=== PATIENT | male | born 1960 | race Caucasian/White ===

== ENCOUNTER → 2022-10-16 | Outpatient (CLI) | payer BC ==
--- NOTE | 2022-10-16 10:24 | CT ---
EXAMINATION TYPE: CT chest w con CT DLP: 755.00 mGycm, Automated exposure control for dose reduction was used. DATE OF EXAM: 10/16/2022 9:44 AM COMPARISON: None CLINICAL INDICATION:Male, 62 years old with history of I71.2 Thoracic Aortic Aneurysm, Thoracic Aorti c Aneurysm TECHNIQUE: Multiple axial images were obtained through the chest. Sagittal and coronal reformats were created for review. Contrast used:100 ml mL of Isovue 370 with IV Contrast (None if empty) Oral contrast used: (None if empty) FINDINGS: LUNGS/ PLEURA: The lung parenchyma appears unremarkable. AIRWAY: Patent and unremarkable. HEART: The mildly enlarged for size. There is coronary artery and aortic valve leaflet consultations. MEDIASTINUM: No gross evidence of adenopathy. VASCULATURE: No aortic aneurysm. The abdominal aorta is ectatic measuring up to 4.8 cm. The pulmonar y artery trunk is prominent at 3.3 cm. Minimal atherosclerosis and arterial vascular. No descending t horacic aorta aneurysm. MUSCULOSKELETAL: No acute osseous abnormalities SOFT TISSUES/LYMPH NODES: Unremarkable. LOWER NECK: No significant findings. UPPER ABDOMEN: No significant findings. IMPRESSION: 1. Ascending thoracic aorta at the upper limits of ectasia measuring up to 4.8 cm. No evidence for a neurysm. 2. Mild cardiomegaly. 3. Moderate aortic valve leaflet calcifications 4. Moderate coronary artery atherosclerosis. 5. No acute thoracic process.
== END | disposition home or self-care (01) ==
LOC: RADCTMAIN 08:13
PROVIDERS: ATTEND Internal Medicine
DX: I35.0 Nonrheumatic aortic (valve) stenosis (principal); I25.10 Atherosclerotic heart disease of native coronary artery without angina pectoris; I51.7 Cardiomegaly
CPT/HCPCS: 71260; Q9967

== ENCOUNTER → 2023-04-06 | Outpatient (CLI) | payer BC ==
--- NOTE | 2023-04-08 08:20 | CT ---
EXAMINATION TYPE: CT angio chest DATE OF EXAM: 04/06/2023 COMPARISON: Prior chest CT October 16, 2022 HISTORY: THORACIC AORTIC ANEURYSM, WITHOUT RUPTURE CT DLP: 1281.7 mGycm. Automated Exposure Control for Dose Reduction was Utilized. CONTRAST: CTA scan of the thorax is performed without and with IV Contrast, patient injected with 100ml mL of I sovue 300, aneurysm protocol. 3D reconstructed images are created on an independent workstation and reviewed. FINDINGS: LUNGS: Some dependent atelectasis otherwise lungs remain clear. There is no pleural effusion or pne umothorax seen. The tracheobronchial tree is patent. MEDIASTINUM: No suspicious hyperdense material on noncontrast images to suggest intramural hematoma. Persistent calcified thickening of the aortic valve. Aorta measures 4.5 cm in diameter in the root co duong image 65 . Aorta measures up to 4.7 cm at the level of the main pulmonary artery axial image 64 . Normal three-vessel takeoff redemonstrated. No aneurysm in the descending thoracic aorta. There are no greater than 1 cm hilar or mediastinal lymph nodes. Heart size upper limits of normal. No pericar dial effusion is seen. Coronary artery calcification is redemonstrated. OTHER: No additional significant abnormality is seen. IMPRESSION: Stable 4.7 cm ascending aortic aneurysm accounting for technical differences.
== END | disposition home or self-care (01) ==
LOC: RADCTMAIN 11:09
PROVIDERS: ATTEND Thoracic Surgery (Cardiothoracic Vascular Surgery)
DX: I71.21 Aneurysm of the ascending aorta, without rupture (principal)
CPT/HCPCS: 71275; Q9967

== ENCOUNTER → 2024-04-16 | Outpatient (CLI) | payer BC ==
[2024-04-16 08:42] LABS: African American GFR (CKD) >90 (>60 ml/min/1.73 sqM); Blood Urea Nitrogen 16 mg/dL (9-20); Non-African American GFR(CKD) >90 (>60 ml/min/1.73 sqM)
--- NOTE | 2024-04-16 09:35 | CT ---
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 TECHNIQUE/CONTRAST: CTA scan of the thorax is performed without and with IV Contrast, patient injected with 100ml mL of I sovue 370, 3D and MIP reconstructed images are created on an independent workstation and reviewed.. . CT DLP: 1212.5 mGycm, Automated exposure control for dose reduction was used. FINDINGS: Lungs/Pleura: No evidence of focal consolidation, pleural effusion or pneumothorax. Airway: Large airways are patent. Heart: Heart is within normal limits for size. Severe aortic valve calcifications. Severe coronary ar marcos dislocations. Vasculature: Ascending thoracic age 46 mm. No evidence for intramural hematoma on noncontrast imaging . No evidence of intimal flap to suggest dissection. No aneurysm identified. Scattered atheroscleroti c disease. There is no evidence for a filling defect within the pulmonary vasculature centrally to gage ggest acute pulmonary embolism. The pulmonary artery is of normal size. Mediastinum: No gross evidence of adenopathy. Musculoskeletal: No acute osseous abnormalities Soft Tissues/lymph nodes: Unremarkable. Lower neck: No significant findings. Upper Abdomen: Diffuse low-attenuation to the liver parenchyma. Pancreatic tail nodule measuring 15 m m. Left hepatic lobe probable cyst in segment 4A. IMPRESSION: 1. No evidence for aortic aneurysm, dissection or occlusion. No evidence for pulmonary embolus in the central pulmonary vasculature. 2. Ascending thoracic aorta ectasia up to 46 mm. 3. Severe aortic valve and coronary artery calcifications. 4. Hepatic steatosis. 5. Pancreatic tail nodule measuring 15 mm, possibly representing a pancreatic tail splenule. Consider multiphase pancreatic mass protocol MRI for confirmation. [facility], , 04/16/2024 9:33 AM
== END | disposition home or self-care (01) ==
LOC: RADCTMAIN 07:52
PROVIDERS: ATTEND Thoracic Surgery (Cardiothoracic Vascular Surgery)
DX: I77.810 Thoracic aortic ectasia (principal); I25.10 Atherosclerotic heart disease of native coronary artery without angina pectoris; K76.0 Fatty (change of) liver, not elsewhere classified; R22.2 Localized swelling, mass and lump, trunk
CPT/HCPCS: 82565; 84520; 71275; 36415; Q9967